=== PATIENT | female | born 1970 | race Hispanic/Latino ===

== ENCOUNTER 2020-08-13 17:45 | Emergency (ER) | payer SELFPAY | END 2020-08-13 18:15 | disposition left against medical advice (07) | LOC: FSED 17:50 | DX: R07.9 Chest pain, unspecified (principal); I10 Essential (primary) hypertension; E11.9 Type 2 diabetes mellitus without complications; Z86.718 Personal history of other venous thrombosis and embolism | CPT/HCPCS: 70450; 93005; 99282 ==